=== PATIENT | male | born 1990 | race African-American/Black ===

== ENCOUNTER 2019-03-24 20:59 | Emergency (ER) | payer OTHER ==
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
[2019-03-24 21:28] VITALS: BP 130/79
== END 2019-03-24 21:28 | disposition home or self-care (01) ==
LOC: ED 20:59
DX: T75.4XXA Electrocution, initial encounter (principal)
CPT/HCPCS: 93005; 99281; 99283